=== PATIENT | female | born 1960 | race Caucasian/White ===

== ENCOUNTER 2017-12-25 06:31 | Observation (INO) | payer BC ==
[2017-12-25] MEDS ORDERED: MIDAZOLAM 1 MG/ML 2 ML INJ ×2 (07:54→09:08)
[2017-12-25] MEDS ORDERED: PROPOFOL 20 ML ×2 (08:06→11:21)
[2017-12-25] MEDS ORDERED: ONDANSETRON 4 MG INJ ×2 (08:06→12:07)
[2017-12-25] MEDS ORDERED: ROCURONIUM 50 MG INJ ×2 (08:06→09:09)
[2017-12-25] MEDS ORDERED: HYDROmorphONE 2 MG/ML SYG (08:07)
[2017-12-25] MEDS ORDERED: DEXAMETHASONE 4 MG/ML 1 ML INJ (08:07)
[2017-12-25] MEDS ORDERED: PHENYLephrine 10 MG INJ (08:07)
[2017-12-25] MEDS ORDERED: morphine SULFATE/PF (10 MG/10 ML) INJ (08:23)
[2017-12-25] MEDS ORDERED: FENTAnyl 50 MCG/ML VIAL (09:40)
[2017-12-25] MEDS ORDERED: niCARdipine-NS 0.1MG/ML DRIP 200 ML IV (10:00)
[2017-12-25] MEDS ORDERED: ESMOLOL 10 ML (10:20)
[2017-12-25] MEDS ORDERED: METOPROLOL 5 MG INJ (10:20)
[2017-12-25] MEDS ORDERED: CEFAZOLIN 1 GM INJ (10:30)
[2017-12-25] MEDS ORDERED: BUPIVACAINE 0.5% (SDV) 30 ML INJ (10:55)
[2017-12-25] MEDS ORDERED: HYDROmorphONE 0.5 MG/0.5 ML SYG IV ×3 (11:00)
[2017-12-25] MEDS ORDERED: ONDANSETRON 4 MG INJ IV (11:00)
[2017-12-25] MEDS ORDERED: LABETALOL HCL 20MG INJ IV ×2 (11:00→13:00)
[2017-12-25] MEDS ORDERED: hydrALAzine 20 MG INJ IV (11:00)
[2017-12-25] MEDS ORDERED: DIPHENHYDRAMINE 50 MG INJ IV ×2 (11:00→13:00)
[2017-12-25] MEDS ORDERED: MEPERIDINE 25 MG INJ IV ×2 (11:00→13:00)
[2017-12-25] MEDS: BUPIVACAINE 0.5% 30 ML VIAL INJ (11:13)
[2017-12-25] MEDS ORDERED: GLYCOPYRROLATE 0.4 MG INJ (11:22)
[2017-12-25] MEDS ORDERED: NEOSTIGMINE 3 MG/3 ML SYRINGE (11:22)
[2017-12-25] MEDS ORDERED: SUGAMMADEX SODIUM 200 MG/2 ML VIAL IV (11:40)
[2017-12-25] MEDS ORDERED: hydrALAzine 20 MG INJ (12:16)
[2017-12-25] MEDS: LEVOFLOXACIN 500MG/D5W (PMX) 100 ML IVPB (12:36)
[2017-12-25] MEDS: hydrALAzine 20 MG INJ IV ×2 (12:53→15:06)
[2017-12-25] MEDS: ONDANSETRON 4 MG INJ IV ×2 (12:54→15:06)
[2017-12-25] MEDS ORDERED: HYDROmorphONE 1 MG/5 ML IV SYRINGE IV ×3 (13:00)
[2017-12-25] MEDS ORDERED: morphine 2 MG INJ (13:06)
[2017-12-25] MEDS: morphine 2 MG INJ IV ×2 (13:10→18:46)
[2017-12-25 14:49] LABS: TROPONIN-I < 0.010 ng/ml (0.000-0.120)
[2017-12-25] MEDS: LORAZEPAM 1 MG TAB PO (15:06)
[2017-12-25] MEDS ORDERED: HYDROCODONE/APAP (5/325) TAB PO (16:30)
[2017-12-25] MEDS ORDERED: ALBUTEROL HFA 8 GM INHALER INH (16:30)
[2017-12-25] MEDS ORDERED: ACETAMINOPHEN 650MG/20.3ML CUP PO (16:30)
[2017-12-25 19:47] LABS: ANION GAP 14 (8-16); BLOOD UREA NITROGEN 25 mg/dl (7-20); CALCIUM 9.1 mg/dl (8.4-10.2); CARBON DIOXIDE 21 mmol/L (21-31); CHLORIDE 109 mmol/L (97-110); CREATININE 1.26 mg/dl (0.44-1.00); GLUCOSE 88 mg/dl (70-220); POTASSIUM 4.6 mmol/L (3.5-5.1); SODIUM 139 mmol/L (135-144)
[2017-12-25] MEDS: LEVETIRACETAM (100 MG/ML) 5ML CUP PO (20:58)
[2017-12-25] MEDS: HYDROmorphONE 0.5 MG/0.5 ML SYG IV (20:59)
[2017-12-25] MEDS ORDERED: ISOSORBIDE DINITRATE 60 MG PO (21:00)
[2017-12-25] MEDS ORDERED: SPIRONOLACTONE 50 MG TAB PO (21:00)
[2017-12-25] MEDS ORDERED: BECLOMETHASONE DIP INH (21:00)
[2017-12-25] MEDS ORDERED: clonAZEPAM 0.5 MG TAB PO (21:00)
[2017-12-25] MEDS: clonAZEPAM 0.5 MG TAB PO (21:08)
[2017-12-25] MEDS: ISOSORBIDE DINITRATE 20 MG TAB PO (22:21)
[2017-12-25] MEDS: MOMETASONE 0.24 GM INHALER INH (22:21)
[2017-12-25] MEDS: TERAZOSIN 5 MG CAP PO (22:23)
[2017-12-25] MEDS: PANTOPRAZOLE 40 MG INJ IV (23:31)
[2017-12-26] MEDS: HYDROCODONE/APAP (5/325) TAB PO (01:02)
[2017-12-26] MEDS: HYDROmorphONE 0.5 MG/0.5 ML SYG IV ×5 (02:43→22:16)
[2017-12-26] MEDS: ZOLPIDEM 5 MG TAB PO (03:14)
[2017-12-26 05:52] LABS: ADD MAN DIFF? NO
[2017-12-26 05:54] LABS: WHITE BLOOD COUNT 12.1 10^3/ul (4.8-10.8)
[2017-12-26 05:54] LABS: ABNORMAL IP MESSAGE 1; BASOPHILS % 0.1 % (0.0-2.0); EOSINOPHILS % 0.3 % (0.0-7.0); HEMATOCRIT 32.5 % (37.0-47.0); HEMOGLOBIN 10.7 g/dl (12.0-16.0); IMMATURE GRANS #M 0.05 10^3/ul; IMMATURE GRANS % (M) 0.4 %; LYMPHOCYTES # 1.2 10^3/ul (0.8-2.9); LYMPHOCYTES % 10.1 % (15.0-51.0); MEAN CORPUSCULAR HGB CONC 32.9 g/dl (32.0-37.0); MEAN CORPUSCULAR VOLUME 88.1 fl (82.0-101.0); MEAN PLATELET VOLUME 13.3 fl (7.4-10.4); MONOCYTE # 1.3 10^3/ul (0.3-0.9); MONOCYTES % 10.7 % (0.0-11.0); NEUTROPHIL # 9.5 10^3/ul (1.6-7.5); NEUTROPHILS % 78.4 % (39.0-77.0); PLATELET COUNT 184 10^3/UL (140-415); RED BLOOD COUNT 3.69 10^6/ul (4.20-5.40); RED CELL DISTRIBUTION WIDTH 13.7 % (11.5-14.5)
[2017-12-26 05:56] LABS: POSITIVE DIFF @See below
[2017-12-26 06:02] LABS: ANION GAP 10 (8-16); BLOOD UREA NITROGEN 23 mg/dl (7-20); CALCIUM 9.3 mg/dl (8.4-10.2); CARBON DIOXIDE 23 mmol/L (21-31); CHLORIDE 109 mmol/L (97-110); CREATININE 1.35 mg/dl (0.44-1.00); GLUCOSE 85 mg/dl (70-220); MAGNESIUM 1.4 mg/dl (1.7-2.5); PHOSPHORUS 3.1 mg/dl (2.5-4.9); POTASSIUM 4.3 mmol/L (3.5-5.1); SODIUM 138 mmol/L (135-144)
[2017-12-26] MEDS: PANTOPRAZOLE (EC) 40 MG TAB PO (06:17)
[2017-12-26] MEDS: LEVOTHYROXINE 150 MCG TAB PO (06:17)
[2017-12-26] MEDS: morphine 2 MG INJ IV ×3 (06:21→23:14)
[2017-12-26] MEDS: MAGNESIUM SULFATE 1 GM/D5W 100 ML IVPB ×3 (06:54→09:10)
[2017-12-26] MEDS ORDERED: MAGNESIUM SULFATE 3 GM in DEXTROSE 5% 100 ML IVPB (07:00)
[2017-12-26] MEDS: LEVETIRACETAM (100 MG/ML) 5ML CUP PO ×2 (08:14→09:00)
[2017-12-26] MEDS: ISOSORBIDE DINITRATE 20 MG TAB PO ×3 (08:15→21:06)
[2017-12-26] MEDS: ASPIRIN (EC) 81 MG TAB PO (08:15)
[2017-12-26] MEDS: clonAZEPAM 0.5 MG TAB PO ×2 (08:16→21:06)
[2017-12-26] MEDS: METOPROLOL 100 MG TAB PO (08:16)
[2017-12-26] MEDS: IBUPROFEN 600 MG TAB PO (08:16)
[2017-12-26] MEDS: ENOXAPARIN 40 MG/0.4 ML SYG SC (08:23)
[2017-12-26] MEDS: MOMETASONE 0.24 GM INHALER INH ×2 (09:00→21:00)
[2017-12-26] MEDS ORDERED: NON-FORMULARY/PATIENT OWN MED (Omeprazole* 40 MG) PO (09:00)
[2017-12-26] MEDS ORDERED: METOPROLOL 100 MG TAB PO (09:00)
[2017-12-26] MEDS ORDERED: ASPIRIN (EC) 81 MG TAB PO (09:00)
[2017-12-26] MEDS: SOD CHLORIDE 0.9% 100 ML (09:29)
[2017-12-26] MEDS: IODIXANOL LOCM 100 ML BTL ×2 (09:29)
[2017-12-26] MEDS: LEVETIRACETAM 500 MG TAB PO ×2 (10:29→21:06)
[2017-12-26] MEDS: ALPRAZOLAM 0.5 MG TAB PO ×2 (10:30→20:04)
[2017-12-26] MEDS: MAGNESIUM SULFATE 2 GM/50 ML 50 ML IVPB (11:09)
[2017-12-26] MEDS: ESTRADIOL 1 MG TAB PO (15:56)
[2017-12-26] MEDS: KETOROLAC 30 MG INJ IV (15:57)
[2017-12-26] MEDS: HYDROCODONE/APAP (10/325) TAB PO (16:32)
[2017-12-26] MEDS: TERAZOSIN 5 MG CAP PO (21:00)
[2017-12-27] MEDS: ZOLPIDEM 5 MG TAB PO (00:10)
[2017-12-27] MEDS: KETOROLAC 30 MG INJ IV ×3 (00:11→19:59)
[2017-12-27] MEDS: HYDROCODONE/APAP (10/325) TAB PO ×3 (03:29→17:18)
[2017-12-27] MEDS: HYDROmorphONE 0.5 MG/0.5 ML SYG IV ×3 (04:41→17:18)
[2017-12-27] MEDS: LEVOTHYROXINE 150 MCG TAB PO (05:51)
[2017-12-27] MEDS: PANTOPRAZOLE (EC) 40 MG TAB PO (05:51)
[2017-12-27 06:11] LABS: ANION GAP 9 (8-16); BLOOD UREA NITROGEN 29 mg/dl (7-20); CALCIUM 9.1 mg/dl (8.4-10.2); CARBON DIOXIDE 25 mmol/L (21-31); CHLORIDE 107 mmol/L (97-110); CREATININE 1.66 mg/dl (0.44-1.00); GLUCOSE 129 mg/dl (70-220); MAGNESIUM 2.4 mg/dl (1.7-2.5); PHOSPHORUS 2.3 mg/dl (2.5-4.9); POTASSIUM 4.2 mmol/L (3.5-5.1); SODIUM 137 mmol/L (135-144)
[2017-12-27] MEDS: morphine 2 MG INJ IV ×2 (08:07→13:30)
[2017-12-27] MEDS: MOMETASONE 0.24 GM INHALER INH ×2 (08:11→21:32)
[2017-12-27] MEDS: ESTRADIOL 1 MG TAB PO (08:12)
[2017-12-27] MEDS: ASPIRIN (EC) 81 MG TAB PO (08:12)
[2017-12-27] MEDS: ISOSORBIDE DINITRATE 20 MG TAB PO (08:14)
[2017-12-27] MEDS: LEVETIRACETAM 500 MG TAB PO ×2 (08:15→21:32)
[2017-12-27] MEDS: clonAZEPAM 0.5 MG TAB PO ×2 (08:15→21:32)
[2017-12-27] MEDS: METOPROLOL 100 MG TAB PO (08:16)
[2017-12-27] MEDS: ENOXAPARIN 40 MG/0.4 ML SYG SC ×2 (08:21→09:00)
[2017-12-27] MEDS: NAPROXEN 500 MG TAB PO ×2 (11:30→21:32)
[2017-12-27] MEDS: ALPRAZOLAM 0.5 MG TAB PO (13:43)
[2017-12-28 01:10] LABS: HIV 1&2 ANTIBODY NEGATIVE (NEGATIVE)
[2017-12-28] MEDS: HYDROCODONE/APAP (10/325) TAB PO ×2 (01:25→08:57)
[2017-12-28] MEDS: HYDROmorphONE 0.5 MG/0.5 ML SYG IV ×2 (03:33→11:27)
[2017-12-28 05:51] LABS: ADD MAN DIFF? NO
[2017-12-28] MEDS: PANTOPRAZOLE (EC) 40 MG TAB PO (05:53)
[2017-12-28] MEDS: LEVOTHYROXINE 150 MCG TAB PO (05:53)
[2017-12-28 06:04] LABS: WHITE BLOOD COUNT 7.6 10^3/ul (4.8-10.8)
[2017-12-28 06:04] LABS: ABNORMAL IP MESSAGE 1; BASOPHILS % 0.3 % (0.0-2.0); EOSINOPHILS # 0.3 10^3/ul (0.0-0.5); EOSINOPHILS % 4.3 % (0.0-7.0); HEMATOCRIT 33.7 % (37.0-47.0); HEMOGLOBIN 10.8 g/dl (12.0-16.0); IMMATURE GRANS #M 0.04 10^3/ul; IMMATURE GRANS % (M) 0.5 %; LYMPHOCYTES # 1.5 10^3/ul (0.8-2.9); LYMPHOCYTES % 19.5 % (15.0-51.0); MEAN CORPUSCULAR HEMOGLOBIN 28.5 pg (29.0-33.0); MEAN CORPUSCULAR VOLUME 88.9 fl (82.0-101.0); MEAN PLATELET VOLUME 13.5 fl (7.4-10.4); MONOCYTE # 0.7 10^3/ul (0.3-0.9); MONOCYTES % 9.2 % (0.0-11.0); NEUTROPHILS % 66.2 % (39.0-77.0); PLATELET COUNT 183 10^3/UL (140-415); RED BLOOD COUNT 3.79 10^6/ul (4.20-5.40); RED CELL DISTRIBUTION WIDTH 13.6 % (11.5-14.5)
[2017-12-28 06:15] LABS: POSITIVE DIFF @See below
[2017-12-28 06:22] LABS: ANION GAP 10 (8-16); BLOOD UREA NITROGEN 26 mg/dl (7-20); CARBON DIOXIDE 23 mmol/L (21-31); CHLORIDE 111 mmol/L (97-110); CREATININE 1.46 mg/dl (0.44-1.00); GLUCOSE 111 mg/dl (70-220); MAGNESIUM 2.3 mg/dl (1.7-2.5); PHOSPHORUS 2.9 mg/dl (2.5-4.9); POTASSIUM 4.2 mmol/L (3.5-5.1); SODIUM 140 mmol/L (135-144)
[2017-12-28] MEDS: ESTRADIOL 1 MG TAB PO (08:51)
[2017-12-28] MEDS: METOPROLOL 100 MG TAB PO (08:52)
[2017-12-28] MEDS: LEVETIRACETAM 500 MG TAB PO ×2 (08:52→20:48)
[2017-12-28] MEDS: clonAZEPAM 0.5 MG TAB PO ×2 (08:53→20:48)
[2017-12-28] MEDS: ASPIRIN (EC) 81 MG TAB PO (08:53)
[2017-12-28] MEDS: MOMETASONE 0.24 GM INHALER INH ×2 (08:59→20:47)
[2017-12-28] MEDS: ENOXAPARIN 40 MG/0.4 ML SYG SC (09:00)
[2017-12-28] MEDS: OXYCODONE/ACETAMINOPHEN (10/325) TAB PO ×2 (14:56→20:48)
[2017-12-28] MEDS: HEPARIN 5,000 UNIT/0.5 ML VIAL SC (20:50)
[2017-12-29] MEDS: OXYCODONE/ACETAMINOPHEN (10/325) TAB PO ×3 (02:56→15:09)
[2017-12-29] MEDS: LEVOTHYROXINE 150 MCG TAB PO (06:19)
[2017-12-29] MEDS: PANTOPRAZOLE (EC) 40 MG TAB PO (06:19)
[2017-12-29] MEDS: HEPARIN 5,000 UNIT/0.5 ML VIAL SC ×2 (09:00→20:55)
[2017-12-29] MEDS: MOMETASONE 0.24 GM INHALER INH ×2 (09:03→20:54)
[2017-12-29] MEDS: ESTRADIOL 1 MG TAB PO (09:03)
[2017-12-29] MEDS: LEVETIRACETAM 500 MG TAB PO ×2 (09:03→20:54)
[2017-12-29] MEDS: ASPIRIN (EC) 81 MG TAB PO (09:03)
[2017-12-29] MEDS: METOPROLOL 100 MG TAB PO (09:04)
[2017-12-29] MEDS: clonAZEPAM 0.5 MG TAB PO ×2 (09:08→20:54)
[2017-12-29 09:33] LABS: ADD MAN DIFF? NO
[2017-12-29 09:39] LABS: BASOPHILS % 0.1 % (0.0-2.0); EOSINOPHILS # 0.4 10^3/ul (0.0-0.5); EOSINOPHILS % 5.4 % (0.0-7.0); HEMOGLOBIN 11.5 g/dl (12.0-16.0); IMMATURE GRANS #M 0.03 10^3/ul; IMMATURE GRANS % (M) 0.4 %; LYMPHOCYTES # 1.6 10^3/ul (0.8-2.9); LYMPHOCYTES % 22.6 % (15.0-51.0); MEAN CORPUSCULAR HEMOGLOBIN 27.9 pg (29.0-33.0); MEAN CORPUSCULAR HGB CONC 31.9 g/dl (32.0-37.0); MEAN CORPUSCULAR VOLUME 87.4 fl (82.0-101.0); MEAN PLATELET VOLUME 12.6 fl (7.4-10.4); MONOCYTE # 0.6 10^3/ul (0.3-0.9); MONOCYTES % 8.4 % (0.0-11.0); NEUTROPHIL # 4.4 10^3/ul (1.6-7.5); NEUTROPHILS % 63.1 % (39.0-77.0); PLATELET COUNT 205 10^3/UL (140-415); RED BLOOD COUNT 4.12 10^6/ul (4.20-5.40); RED CELL DISTRIBUTION WIDTH 13.7 % (11.5-14.5)
[2017-12-29 10:07] LABS: ANION GAP 9 (8-16); BLOOD UREA NITROGEN 26 mg/dl (7-20); CALCIUM 9.4 mg/dl (8.4-10.2); CARBON DIOXIDE 26 mmol/L (21-31); CHLORIDE 110 mmol/L (97-110); CREATININE 1.45 mg/dl (0.44-1.00); GLUCOSE 88 mg/dl (70-220); MAGNESIUM 2.2 mg/dl (1.7-2.5); POTASSIUM 5.2 mmol/L (3.5-5.1); SODIUM 140 mmol/L (135-144)
[2017-12-29 16:51] LABS: HOMOCYSTEINE - CARDIOVASCULAR 24.2 umol/L (<10.4)
[2017-12-29 18:21] LABS: ANA SCREEN POSITIVE (NEGATIVE)
[2017-12-29 19:52] LABS: ANA PATTERN HOMOGENEOUS
[2017-12-29 20:38] LABS: ALDOSTERONE <2 ng/dL
[2017-12-29 22:08] LABS: B2 GLYCOPROTEIN I AB (IGA) <9 SAU (< OR = 20); B2 GLYCOPROTEIN I AB (IGG) <9 SGU (< OR = 20); B2 GLYCOPROTEIN I AB (IGM) <9 SMU (< OR = 20)
== END 2017-12-29 21:15 | disposition home or self-care (01) ==
LOC: REC 06:31 → ICU 12:08 → MS1 12-26 19:23
PROVIDERS: Surgery Surgical Oncology
DX: D35.01 Benign neoplasm of right adrenal gland (principal); E26.01 Conn's syndrome; K66.0 Peritoneal adhesions (postprocedural) (postinfection); N17.9 Acute kidney failure, unspecified; K56.7 Ileus, unspecified; I70.212 Atherosclerosis of native arteries of extremities with intermittent claudication, left leg; I70.201 Unspecified atherosclerosis of native arteries of extremities, right leg; I10 Essential (primary) hypertension; E03.9 Hypothyroidism, unspecified; I25.2 Old myocardial infarction; G40.909 Epilepsy, unspecified, not intractable, without status epilepticus; Z95.810 Presence of automatic (implantable) cardiac defibrillator; F17.200 Nicotine dependence, unspecified, uncomplicated; Z88.0 Allergy status to penicillin
CPT/HCPCS: 38570; 71045; 73706; 80048; 81240; 82088; 83090; 83735; 83890; 84100; 84484; 85025; 85300; 85302; 85305; 85613; 86038; 86146; 86147; 86430; 86703; 86850; 86900; 86901; 88307; 88341; 88342; 93005; 93922; 97161; 99217